=== PATIENT | female | born 2000 | race Caucasian/White ===

== ENCOUNTER 2022-03-03 20:00 | Observation (INO) | payer MEDICAID, OTHER ==
[~2022-03-03] VITALS: Ht 160 cm; Wt 61.7 kg
[2022-03-03] MEDS ORDERED: PREN1COM12 MT (20:51)
[2022-03-03] MEDS ORDERED: CEFAZOLIN 1000MG PREMIX 50 ML IV NR (22:00)
[2022-03-03] MEDS: TERBUTALINE SULFATE 1MG/ML VIAL SUBCUT PRN ×2 (22:17→23:01)
[2022-03-03] MEDS: LACTATED RINGERS 1,000 ML IV NR ×2 (22:17→22:53)
[2022-03-03 22:58] LABS: CLARITY URINE TURBID (CLEAR); COLOR URINE YELLOW (YELLOW); KETONES URINE NEGATIVE (NEGATIVE); LEUKOCYTE ESTERASE URINE TRACE (NEGATIVE); NITRITE URINE NEGATIVE (NEGATIVE); OCCULT BLOOD URINE 3+ (NEGATIVE); PH URINE 7.5 (4.5-8.0); PROTEIN URINE TRACE (NEGATIVE); SPECIFIC GRAVITY URINE 1.022 (1.005-1.030)
== END 2022-03-04 00:15 | disposition home or self-care (01) ==
LOC: 8 EST LDRP 20:00
PROVIDERS: ADMIT Obstetrics & Gynecology; ATTEND Obstetrics & Gynecology
DX: O23.42 Unspecified infection of urinary tract in pregnancy, second trimester (principal); O26.892 Other specified pregnancy related conditions, second trimester; R10.9 Unspecified abdominal pain; Z3A.25 25 weeks gestation of pregnancy
CPT/HCPCS: 59025; 76805; 81003; 82731; 96365; 96372; G0378; J0690; J3105; 96360; 96361; 99281

== ENCOUNTER 2022-04-09 21:24 | Observation (INO) | payer SELFPAY ==
[~2022-04-09] VITALS: Ht 160 cm; Wt 60.8 kg
[~2022-04-09 21:24] MED LIST: PREN1COM12 MT
[2022-04-09] MEDS ORDERED: FOLIC ACID (22:21)
[2022-04-09] MEDS ORDERED: FERR325T6 PO (22:21)
[2022-04-09] MEDS ORDERED: PNV11TAB5 PO (22:21)
[2022-04-09] MEDS ORDERED: CALC-1042 PO (22:21)
== END 2022-04-09 22:45 | disposition home or self-care (01) ==
LOC: 8 EST LDRP 21:24
PROVIDERS: ADMIT Obstetrics & Gynecology; ATTEND Obstetrics & Gynecology
DX: O42.913 Preterm premature rupture of membranes, unspecified as to length of time between rupture and onset of labor, third trimester (principal); Z3A.30 30 weeks gestation of pregnancy
CPT/HCPCS: 99281; G0378; 59025; G0379